=== PATIENT | male | born 1950 | race Caucasian/White ===

== ENCOUNTER 2022-10-07 09:24 | Outpatient (CLI) | payer MEDICARE ==
[2022-10-07 10:42] LABS: BILIRUBIN,URINE NEGATIVE (NEGATIVE); COLOR,URINE YELLOW (YELLOW); LEUKOCYTE ESTERASE ,URINE NEGATIVE (NEGATIVE); NITRITE, URINE NEGATIVE (NEGATIVE); PROTEIN,URINE NEGATIVE (NEGATIVE); UGLUCOSE 3+ mg/dL (NEGATIVE); UROBILINOGEN,URINE 0.2 EU/dL (0.2)
[2022-10-07 10:50] LABS: BASOPHILS % (AUTO) 0.3 % (0.0-2.0); EOSINOPHILS % (AUTO) 0.7 % (0.0-6.0); HEMATOCRIT 42 % (39-51); HEMOGLOBIN 14.1 g/dL (13.5-17.5); LYMPHOCYTES # (AUTO) 1.1 K/uL (0.8-4.8); MEAN CORPUSCULAR HGB CONC 34 g/dl (31.0-36.0); MEAN CORPUSCULAR VOLUME 89 fL (80-96); MONOCYTES # (AUTO) 0.6 K/uL (0.1-1.30); MONOCYTES % (AUTO) 8.1 % (2.0-12.0); NEUTROPHILS # (AUTO) 5.7 K/uL (1.8-8.9); NEUTROPHILS % (AUTO) 75.9 % (43.0-81.0); PLATELET COUNT (AUTO) 313 K/uL (150-450); WHITE BLOOD COUNT (AUTO) 7.5 K/uL (4.3-11.0)
[2022-10-07 10:52] LABS: CARBON DIOXIDE 27 mmol/L (21-32); CHLORIDE 106 mmol/L (98-107); CREATININE 1.1 mg/dL (0.6-1.3); GLUCOSE 123 mg/dL (74-106); POTASSIUM 3.6 mmol/L (3.5-5.1); SODIUM SERUM 143 mmol/L (136-145); UREA NITROGEN, BLOOD 24 mg/dL (7-18)
[2022-10-07 11:38] LABS: BACTERIA,URINE None seen /HPF (None Seen); SQUAMOUS EPITHELIAL CELL,UR Few /HPF (None Seen); WBC,URINE 0-2 /HPF (0-3)
== END 2022-10-07 23:59 | disposition home or self-care (01) ==
LOC: LAB 09:24
PROVIDERS: ATTEND Internal Medicine Pulmonary Disease
DX: Z01.818 Encounter for other preprocedural examination (principal)
CPT/HCPCS: 36415; 71045-TC; 80048-TC; 81001; 85025-TC; 85610-TC; 85730-TC

== ENCOUNTER 2022-10-13 12:48 | Outpatient (CLI) | payer MEDICARE | END 2022-10-13 23:59 | disposition home or self-care (01) | LOC: LAB 12:48 | PROVIDERS: ATTEND Dentist Oral and Maxillofacial Surgery | DX: Z01.812 Encounter for preprocedural laboratory examination (principal); Z20.822 Contact with and (suspected) exposure to COVID-19 | CPT/HCPCS: U0003; C9803 ==

== ENCOUNTER 2022-10-17 06:03 | Inpatient (IN) | payer MEDICARE ==
[~2022-10-17] VITALS: Ht 162.6 cm; Wt 74.4 kg
--- NOTE | 2022-10-17 06:20 | NUR ---
director environmental notes Pt is alert and orientedX4. Pt's son at the bedside Mundo Polanco ([phone]). On room air. No SOB. No S/s of distress noted. Vs is stable. Pt is scheduled for day SX Resect bone cysts, benign neoplasm and bilat osteomyelitis, mandible and maxilla with DR. Hu. Consent is signed by Pt. Pt's NPO since last night. Pt refuses to have IV insertion. Pt informed only wanted inserted on OR. Pt's belonging given to Pt's son. Safety precautions is maintained. Will endorse to am nurse.
[2022-10-17 06:30] VITALS: BP 136/72
[2022-10-17] MEDS ORDERED: GABAPENTIN 300 MG CAPSULE PO ONE (06:30)
--- NOTE | 2022-10-17 06:40 | NUR ---
RN notes Received a phone call from anesthesiology Irma Albarran. Anesthesiology instructed to give tylenol and gabapentin before SX. Meds were given as ordered. charge nurse is aware and informed.
[2022-10-17] MEDS ORDERED: FENTANYL PF 100MCG/2ML AMPUL ONE ×2 (06:49→11:36)
[2022-10-17] MEDS ORDERED: LIDOCAINE 2%-EPI 1:100,000 30 ML VIAL ONE (06:51)
[2022-10-17] MEDS ORDERED: DEXAMETHASONE SOD PHOSPHATE 10 MG/ML VIAL ONE (06:51)
[2022-10-17] MEDS ORDERED: ANESTHESIA TRAY IN PYXIS 1 EA TRAY MC ONE (06:52)
[2022-10-17] MEDS ORDERED: VANCOMYCIN 1 GM VIAL ONE (06:52)
[2022-10-17] MEDS ORDERED: ACETAMINOPHEN ES 500 MG TABLET PO ONE (07:00)
--- NOTE | 2022-10-17 07:04 | NUR ---
RN notes OR tech at the bedside. Pt is going to OR. Meds tylenol and gabapentin were given per anesthesiology Irma Albarran. VS is stable. NPO. Pt's son at the bedside.
--- NOTE | 2022-10-17 07:10 | NUR ---
RN notes Will endorse to am nurse for [facility].
[2022-10-17] MEDS ORDERED: ROCURONIUM BROMIDE 50 MG/5 ML ONE (07:14)
[2022-10-17] MEDS ORDERED: OXYMETAZOLINE HCL NASAL SPRAY 30 ML BOTTLE NS ONE ×2 (07:14→07:25)
[2022-10-17] MEDS ORDERED: FAMOTIDINE/PF INJ 20 MG/2 ML VIAL IV ONE (07:14)
[2022-10-17] MEDS ORDERED: SEVOFLURANE 250 ML BOTTLE IH ONE (07:40)
[2022-10-17 12:00] VITALS: BP 124/65
[2022-10-17] MEDS ORDERED: IV NS 0.9% 1,000 ML IV PRN (12:00)
[2022-10-17] MEDS: ACETAMINOPHEN 325 MG TABLET PO PRN ×2 (12:26→20:11)
[2022-10-17] MEDS ORDERED: OMEP40CA21 PO (13:11)
[2022-10-17] MEDS ORDERED: OLME20TA13 PO (13:11)
[2022-10-17] MEDS ORDERED: DAPA10TA PO (13:11)
[2022-10-17] MEDS ORDERED: ATOR10TA PO (13:11)
[2022-10-17] MEDS ORDERED: ASPI-1169 PO (13:11)
[2022-10-17] MEDS ORDERED: SITA1TAB2 PO (13:11)
[2022-10-17] MEDS ORDERED: AMLO2.5T4 PO (13:11)
[2022-10-17] MEDS ORDERED: DEXTROSE 50%-WATER 50 ML DISP.SYRIN IV PRN (13:30)
[2022-10-17 16:00] VITALS: BP 121/67
[2022-10-17] MEDS ORDERED: METFORMIN 500 MG TABLET PO SCH (17:00)
--- NOTE | 2022-10-17 17:30 | NUR ---
NOTE- BACK FROM SURGERY PATIENT ARRIVED VIA GURNEY ACCOMPANIED BY 2 OR NURSES AND SON. REPORT GIVEN BY MATTHEW RAMIREZ. PATIENT IS STABLE ON ROOM AIR, NO S/S OF SOB. A/Ox4, SRI LANKAN SPEAKING, UNDERSTANDS ON SITE PROPERTY MANAGER CHINESE. ABLE TO ANSWER QUESTION AND MAKE NEEDS KNOW. PAIN LEVEL 5, POST OP, MANDIBLE SURGERY. ICE PLACED AROUND THE MOUTH FOR PAIN MANAGEMENT, NO S/S OF ACTIVE BLEEDING. VITAL SIGNS T 98.2, HR 86, R 12, O2 96%, BP 125/72. IV ACCESS ON LFA INTACT AND PATENT. BLE CAPILLARIES REFILL <3. PRESENT BOWEL SOUNDS. LUNG CLEAR BILATERALLY UPON AUSCULTATION. SKIN ASSESSMENT DONE, SKIN INTACT. PATIENT WAS ORIENTED TO ROOM. FALL AND SAFETY PRECAUTION IN PLACE, BED LOCKED AND AT THE LOWEST POSITION, SRx2 CALL LIGHT WITHIN REACH. Addendum: 10/17/22 at 1858 by NEGRITA FORREST LVN PATIENT ARRIVED AT 1210 TO UNIT. TIME CORRECTION
[2022-10-17] MEDS: BLOOD SUGAR DIAGNOSTIC 1 EACH STRIP IN SCH ×2 (17:55→22:10)
[2022-10-17] MEDS ORDERED: ATORVASTATIN 10 MG TABLET PO SCH (18:00)
--- NOTE | 2022-10-17 19:29 | NUR ---
CLOSING NOTE PATIENT AWAKE RESTING IN BED, A/Ox4.ABLE TO MAKE ALL NEEDS KNOWN. ON ROOM AIR. NO S/S OF SOB OR LABORED BREATHING. NO S/S OF EDEMA. ICE BAG WAS PROVIDED FOR PAIN MANAGEMENT, POST OP. PAIN LEVEL 2. TOLERATING CLEAR LIQUIDS NO S/S OF DIFFICULTY SWALLOWING. NO S/S OF ACTIVE BLEEDING. MEDICATION WERE ADMINISTERED SCHEDULED. FALL AND SAFETY MEASURES MAINTAINED: BED LOCKED AND AT THE LOWEST POSITION, SRX2, CALL LIGHT WITHIN REACH. ENDORSED TO PAPER BOX MAKER NURSE.
--- NOTE | 2022-10-17 19:37 | NUR ---
noc rn opening received patient just ambulated to the restroom with his cane. a/ox4. no s/s of apparent distress on room air. denies any pain nor discomfort at this time. reading sr on the tele monitor with 88bpm. encouraged with the use of call light. patient is s/p resection of mandible. will monitor for any bleeding and air obstruction.
[2022-10-17 20:00] VITALS: BP 137/67
[2022-10-17] MEDS: INSULIN REGULAR, HUMAN 100 UNIT/ML 3 ML VIAL SQ PRN (22:10)
--- NOTE | 2022-10-17 22:11 | NUR ---
noc rn note- non-admin patient S/P resection of mandible and has not had any solid food. refused Insulin coverage since per patient he only has been drinking water.
[2022-10-18] VITALS: BP 142/74
[2022-10-18 04:00] VITALS: BP 139/75
[2022-10-18 05:55] LABS: BASOPHILS % (AUTO) 0.1 % (0.0-2.0); HEMATOCRIT 36 % (39-51); HEMOGLOBIN 12.2 g/dL (13.5-17.5); LYMPHOCYTES # (AUTO) 1.2 K/uL (0.8-4.8); LYMPHOCYTES % (AUTO) 11.7 % (20.0-44.0); MEAN CORPUSCULAR HGB CONC 34 g/dl (31.0-36.0); MEAN CORPUSCULAR VOLUME 89 fL (80-96); MONOCYTES % (AUTO) 10.4 % (2.0-12.0); NEUTROPHILS # (AUTO) 7.6 K/uL (1.8-8.9); NEUTROPHILS % (AUTO) 77.8 % (43.0-81.0); PLATELET COUNT (AUTO) 281 K/uL (150-450); RED BLOOD CELL COUNT(AUTO) 4.08 MIL/uL (4.5-6.0); WHITE BLOOD COUNT (AUTO) 9.8 K/uL (4.3-11.0)
[2022-10-18] MEDS: BLOOD SUGAR DIAGNOSTIC 1 EACH STRIP IN SCH ×2 (05:59→12:31)
[2022-10-18] MEDS: INSULIN REGULAR, HUMAN 100 UNIT/ML 3 ML VIAL SQ PRN (06:00)
--- NOTE | 2022-10-18 06:00 | NUR ---
noc rn note patient's blood sugar 107 this am. No coverage needed.
[2022-10-18 06:18] LABS: ALBUMIN 2.6 g/dL (3.4-5.0); BILIRUBIN,TOTAL 0.4 mg/dL (0.2-1.0); CALCIUM, SERUM 8.7 mg/dL (8.5-10.1); CREATININE 0.8 mg/dL (0.6-1.3); MAGNESIUM 2.1 mg/dL (1.8-2.4); PHOSPHORUS 2.8 mg/dL (2.5-4.9); POTASSIUM 3.8 mmol/L (3.5-5.1); TOTAL PROTEIN, SERUM 6.3 g/dL (6.4-8.2)
--- NOTE | 2022-10-18 06:59 | NUR ---
noc rn closing Patient in bed with eyes closed. no s/s of apparent distress on room air. denies pain at this time. no bleeding noted. Minimal swelling. reading sr throughout shift. IV NS running @30mls/hr. All needs attended. all scheduled medications administered. will endorse to morning shift rn for continuity of patient care.
[2022-10-18] MEDS ORDERED: PANTOPRAZOLE 40 MG TABLET.DR PO SCH (07:30)
--- NOTE | 2022-10-18 07:49 | NUR ---
INFORMATION TECHNOLOGY AUDITOR Opening Note Patient in bed. No s/s of distress/bleeding noted. On room air. Denies pain at this time. Minimal swelling. Tele monitoring. Left FA #22 IV NS running @30mls/hr. Safety in place, low bed, locked. Will continue to morning patient .
[2022-10-18 08:00] VITALS: BP 138/62
[2022-10-18 08:22] VITALS: BP 138/62
[2022-10-18 08:25] LABS: THYROID STIMULATING HORMONE 0.323 uIU/mL (0.358-3.74)
[2022-10-18] MEDS ORDERED: LOSARTAN POTASSIUM 50 MG TABLET PO SCH (09:00)
[2022-10-18] MEDS ORDERED: ASPIRIN 81 MG TAB.CHEW PO SCH (09:00)
[2022-10-18] MEDS ORDERED: LINAGLIPTIN 5 MG TABLET PO SCH (09:00)
[2022-10-18] MEDS ORDERED: AMLODIPINE BESYLATE 2.5 MG TABLET PO SCH (09:00)
--- NOTE | 2022-10-18 12:30 | NUR ---
SILICA FILTER OPERATOR Note Patient refused inlulin.
--- NOTE | 2022-10-18 14:22 | NUR ---
DISCHARGE NOTE Received order for discharge. Patient is A/O x 4, able to make needs known. Stable on room air, no SOB or s/s of distress noted. Discharge instructions given to patient and patient's son, both verbalized understanding. All belongings accounted for, belonging sheet signed. Patient denies any pain or discomfort at this time. S/P mandible and maxilla surgery, to follow up with Dr. Hu in one week. Exitcare folder given to son. Patient left in stable condition with son via private car.
== END 2022-10-18 14:44 | disposition home or self-care (01) | DRG 141 ==
LOC: DS 06:03 → MED 06:07 → TELE 13:32
PROVIDERS: ADMIT Dentist Oral and Maxillofacial Surgery
PROC: 09BR0ZZ Excision of Left Maxillary Sinus, Open Approach (ICD-10-PCS; principal; 2022-10-17)
PROC: 0NUR07Z Supplement Maxilla with Autologous Tissue Substitute, Open Approach (ICD-10-PCS; 2022-10-17)
PROC: 09BQ0ZZ Excision of Right Maxillary Sinus, Open Approach (ICD-10-PCS; 2022-10-17)
PROC: 09U Ear, Nose, Sinus, Supplement (ICD-10-PCS; 2022-10-17)
PROC: 09U Ear, Nose, Sinus, Supplement (ICD-10-PCS; 2022-10-17)
PROC: 0NBR0ZX Excision of Maxilla, Open Approach, Diagnostic (ICD-10-PCS; 2022-10-17)
PROC: 0NSR04Z Reposition Maxilla with Internal Fixation Device, Open Approach (ICD-10-PCS; 2022-10-17)
DX: M27.2 Inflammatory conditions of jaws (principal); M84.68XA Pathological fracture in other disease, other site, initial encounter for fracture; J32.0 Chronic maxillary sinusitis; E78.5 Hyperlipidemia, unspecified; E11.9 Type 2 diabetes mellitus without complications; M85.68 Other cyst of bone, other site; I10 Essential (primary) hypertension; M79.604 Pain in right leg; G89.29 Other chronic pain; M54.50 Low back pain, unspecified; Z88.8 Allergy status to other drugs, medicaments and biological substances; Z91.018 Allergy to other foods; T18.0XXA Foreign body in mouth, initial encounter; D16.4 Benign neoplasm of bones of skull and face; D16.5 Benign neoplasm of lower jaw bone; Z79.84 Long term (current) use of oral hypoglycemic drugs; Z79.82 Long term (current) use of aspirin; Z79.899 Other long term (current) drug therapy
CPT/HCPCS: 36415; 80053-TC; 80061-TC; 82962-TC; 83735-TC; 84100-TC; 84439-TC; 84443-TC; 85025-TC; 87081-TC; 88305-TC; 88311-TC; A4223; A6402; C1713; G0378; J1100; J1815; J2405; J2704; J3010; J3370; J3490; J7030; Q4186

== ENCOUNTER 2024-04-15 06:27 | Inpatient (IN) | payer MEDICARE ==
[~2024-04-15] VITALS: Ht 172.7 cm; Wt 78.9 kg
[~2024-04-15 06:27] MED LIST: ASPI-1420 PO; ATOR10TA PO; DAPA10TA PO; OLME20TA13 PO; OMEP40CA21 PO; SITA1TAB2 PO
[2024-04-15] MEDS ORDERED: ANESTHESIA TRAY IN PYXIS 1 EA TRAY MC ONE (06:58)
[2024-04-15] MEDS ORDERED: LIDOCAINE 2%-EPI 1:100,000 30 ML VIAL ONE (06:58)
[2024-04-15] MEDS ORDERED: dexaMETHasone SOD PHOSPHATE 1 ML ONE (06:59)
[2024-04-15] MEDS ORDERED: VANCOMYCIN 1 GM VIAL ONE (06:59)
[2024-04-15] MEDS ORDERED: FENTANYL PF 250MCG/5ML AMPUL ONE (07:16)
[2024-04-15] MEDS ORDERED: ROCURONIUM BROMIDE 50 MG/5 ML ONE (07:17)
[2024-04-15] MEDS ORDERED: HYDROMORPHONE 1 MG/1 ML DISP.SYRIN IV PRN (10:00)
[2024-04-15] MEDS ORDERED: ONDANSETRON HCL/PF 4 MG/2 ML VIAL IV PRN (10:00)
[2024-04-15] MEDS: IV NS 0.9% 1,000 ML IV PRN (10:47)
[2024-04-15] MEDS ORDERED: AMLO2.5T4 PO (11:16)
[2024-04-15 12:00] VITALS: BP 134/63; TEMP 97.7; O2SAT 98
[2024-04-15] MEDS: ACETAMINOPHEN 325 MG TABLET PO PRN (13:37)
[2024-04-15 16:00] VITALS: BP 125/79; TEMP 98.6; O2SAT 94
[2024-04-15 20:49] VITALS: BP 122/61; TEMP 98.4; O2SAT 97
[2024-04-15] MEDS: VANCOMYCIN 1 GM in IV D5W 250ml IV SCH (21:27)
[2024-04-16 08:00] VITALS: BP 118/66; TEMP 99; O2SAT 94
== END 2024-04-16 14:34 | disposition home or self-care (01) | DRG 908 ==
LOC: DS 06:27 → MED 10:24
PROVIDERS: ADMIT Internal Medicine; ATTEND Internal Medicine
PROC: 09BR0ZZ Excision of Left Maxillary Sinus, Open Approach (ICD-10-PCS; principal; 2024-04-15)
PROC: 0N5R0ZZ Destruction of Maxilla, Open Approach (ICD-10-PCS; 2024-04-15)
PROC: 0NSR04Z Reposition Maxilla with Internal Fixation Device, Open Approach (ICD-10-PCS; 2024-04-15)
PROC: 0NUR07Z Supplement Maxilla with Autologous Tissue Substitute, Open Approach (ICD-10-PCS; 2024-04-15)
PROC: 0NUR0KZ Supplement Maxilla with Nonautologous Tissue Substitute, Open Approach (ICD-10-PCS; 2024-04-15)
DX: T86.831 Bone graft failure (principal); S02.41 LeFort fracture; J32.0 Chronic maxillary sinusitis; X58.XXXA Exposure to other specified factors, initial encounter; Y92.9 Unspecified place or not applicable; E11.9 Type 2 diabetes mellitus without complications; E78.5 Hyperlipidemia, unspecified; I10 Essential (primary) hypertension; Z79.84 Long term (current) use of oral hypoglycemic drugs; Z79.82 Long term (current) use of aspirin; Z79.899 Other long term (current) drug therapy; G89.29 Other chronic pain; Y83.2 Surgical operation with anastomosis, bypass or graft as the cause of abnormal reaction of the patient, or of later complication, without mention of misadventure at the time of the procedure
CPT/HCPCS: 82962-TC; 88305-TC; 88311-TC; 88312-TC; A4223; A4338; C1713; G0378; J0360; J0690; J1100; J2704; J3010; J3370; J3490; J7030; J7060

== ENCOUNTER 2024-10-28 06:03 | Inpatient (IN) | payer MEDICARE ==
[~2024-10-28] VITALS: Ht 170.2 cm; Wt 75.7 kg
[~2024-10-28 06:03] MED LIST changes: +AMLO2.5T4 PO
[2024-10-28] MEDS ORDERED: VANCOMYCIN 1 GM VIAL ONE (07:01)
[2024-10-28] MEDS ORDERED: ANESTHESIA TRAY IN PYXIS 1 EA TRAY MC ONE (07:01)
[2024-10-28] MEDS ORDERED: LIDOCAINE 2%-EPI 1:100,000 30 ML VIAL ONE (07:01)
[2024-10-28] MEDS ORDERED: dexaMETHasone SOD PHOSPHATE 2 ML ONE (07:01)
[2024-10-28] MEDS ORDERED: OXYMETAZOLINE HCL NASAL SPRAY 30 ML BOTTLE NS ONE (07:24)
[2024-10-28] MEDS ORDERED: LIDOCAINE 2% JEL UROJET 10 ML MM ONE (07:27)
[2024-10-28] MEDS ORDERED: FENTANYL PF 100MCG/2ML AMPUL ONE (07:28)
[2024-10-28] MEDS ORDERED: FAMOTIDINE/PF INJ 20 MG/2 ML VIAL IV ONE (07:28)
[2024-10-28] MEDS ORDERED: ROCURONIUM BROMIDE 50 MG/5 ML ONE (07:28)
[2024-10-28] MEDS ORDERED: MIDAZOLAM HCL 2 MG/2ML VIAL ONE (07:28)
[2024-10-28] MEDS ORDERED: SUGAMMADEX SODIUM 200 MG/2 ML VIAL IV ONE (08:13)
[2024-10-28 09:10] VITALS: BP 138/72; TEMP 97.5; O2SAT 98
[2024-10-28] MEDS ORDERED: MAGNESIUM HYDROXIDE 30 ML UDC PO PRN (10:00)
[2024-10-28] MEDS ORDERED: ONDANSETRON HCL/PF 4 MG/2 ML VIAL IVP PRN (10:00)
[2024-10-28] MEDS ORDERED: LOSARTAN POTASSIUM 50 MG TABLET PO PRN (10:00)
[2024-10-28] MEDS ORDERED: PANTOPRAZOLE 40 MG TABLET.DR PO PRN (10:00)
[2024-10-28] MEDS ORDERED: MAG HYDROX/AL HYDROX/SIMETH 30 ML UDC PO PRN (10:00)
[2024-10-28] MEDS ORDERED: ACETAMINOPHEN 325 MG TABLET PO PRN (10:00)
[2024-10-28] MEDS ORDERED: Z GUARD REMEDY 4 OZ OINT TP PRN (10:00)
[2024-10-28] MEDS ORDERED: HYDROCODONE/APAP 10/325MG TABLET PO PRN (10:00)
[2024-10-28] MEDS ORDERED: AMLODIPINE BESYLATE 2.5 MG TABLET PO PRN (10:00)
[2024-10-28 16:56] LABS: CALCIUM, SERUM 9.3 mg/dL (8.5-10.1); CREATININE 1.1 mg/dL (0.6-1.3); POTASSIUM 4.9 mmol/L (3.5-5.1)
[2024-10-28] MEDS: METFORMIN 500 MG TABLET PO SCH (17:57)
[2024-10-28 20:00] VITALS: BP 133/56; TEMP 98.4; O2SAT 95
[2024-10-28] MEDS: ATORVASTATIN 10 MG TABLET PO SCH (22:26)
[2024-10-29 05:44] LABS: BASOPHILS % (AUTO) 0.1 % (0.0-2.0); HEMATOCRIT 38 % (39-51); HEMOGLOBIN 12.9 g/dL (13.5-17.5); LYMPHOCYTES # (AUTO) 0.8 K/uL (0.8-4.8); LYMPHOCYTES % (AUTO) 6.6 % (20.0-44.0); MEAN CORPUSCULAR HEMOGLOBIN 30 PG (26.0-33.0); MEAN CORPUSCULAR HGB CONC 34 g/dl (31.0-36.0); MEAN CORPUSCULAR VOLUME 89 fL (80-96); MONOCYTES # (AUTO) 0.8 K/uL (0.1-1.30); MONOCYTES % (AUTO) 6.8 % (2.0-12.0); NEUTROPHILS # (AUTO) 10.1 K/uL (1.8-8.9); NEUTROPHILS % (AUTO) 86.5 % (43.0-81.0); PLATELET COUNT (AUTO) 180 K/uL (150-450); RED BLOOD CELL COUNT(AUTO) 4.27 MIL/uL (4.5-6.0); RED CELL DISTRIBUTION WIDTH 13.7 % (11.5-15.0); WHITE BLOOD COUNT (AUTO) 11.7 K/uL (4.3-11.0)
[2024-10-29 05:59] LABS: CALCIUM, SERUM 8.5 mg/dL (8.5-10.1); MAGNESIUM 1.9 mg/dL (1.8-2.4); PHOSPHORUS 3.4 mg/dL (2.5-4.9); POTASSIUM 4.2 mmol/L (3.5-5.1)
[2024-10-29 08:00] VITALS: BP_SYST 109; BP_SYST 148; BP_DIAS 58; BP_DIAS 66; TEMP 98.1; TEMP 98.6; O2SAT 95
[2024-10-29] MEDS: DAPAGLIFLOZIN PROPANEDIOL 10 MG TABLET PO SCH (08:15)
[2024-10-29] MEDS: VANCOMYCIN 1 GM in IV D5W 250ml IV SCH (08:16)
[2024-10-29] MEDS: LINAGLIPTIN 5 MG TABLET PO SCH (08:16)
[2024-10-29] MEDS: ASPIRIN EC 81 MG TABLET.DR PO SCH (08:16)
[2024-10-29] MEDS ORDERED: IV NS 0.9% 1,000 ML IV PRN (08:30)
[2024-10-29] MEDS ORDERED: HYDROMORPHONE 1 MG/1 ML DISP.SYRIN IV PRN (08:30)
== END 2024-10-29 13:15 | disposition home or self-care (01) | DRG 517 ==
LOC: DS 06:03 → MED 09:23
PROVIDERS: ADMIT Nurse Practitioner Acute Care; ATTEND Nurse Practitioner Acute Care
PROC: 0NSR04Z Reposition Maxilla with Internal Fixation Device, Open Approach (ICD-10-PCS; principal; 2024-10-28 07:30)
DX: T84.69XA Infection and inflammatory reaction due to internal fixation device of other site, initial encounter (principal); J01.01 Acute recurrent maxillary sinusitis; J32.0 Chronic maxillary sinusitis; E78.5 Hyperlipidemia, unspecified; I10 Essential (primary) hypertension; G89.29 Other chronic pain; Z79.84 Long term (current) use of oral hypoglycemic drugs; Z79.82 Long term (current) use of aspirin; Z79.899 Other long term (current) drug therapy; E11.69 Type 2 diabetes mellitus with other specified complication; M27.2 Inflammatory conditions of jaws; Y83.8 Other surgical procedures as the cause of abnormal reaction of the patient, or of later complication, without mention of misadventure at the time of the procedure; Y92.009 Unspecified place in unspecified non-institutional (private) residence as the place of occurrence of the external cause; D16.4 Benign neoplasm of bones of skull and face; Z88.8 Allergy status to other drugs, medicaments and biological substances
CPT/HCPCS: 36415; 71045-TC; 80048-TC; 82962-TC; 83735-TC; 84100-TC; 85025-TC; 88305-TC; 88311-TC; A4338; G0378; J1100; J1308; J2250; J2405; J2704; J3010; J3370; J3490; J7030; J7060

== ENCOUNTER 2025-03-31 07:29 | Inpatient (IN) | payer MEDICARE ==
[~2025-03-31] VITALS: Ht 170.2 cm; Wt 76.2 kg
[2025-03-31] MEDS ORDERED: dexaMETHasone SOD PHOSPHATE 1 ML ONE (09:54)
[2025-03-31] MEDS ORDERED: LIDOCAINE 2%-EPI 1:100,000 30 ML VIAL ONE (09:54)
[2025-03-31] MEDS ORDERED: VANCOMYCIN 1 GM VIAL ONE (09:55)
[2025-03-31] MEDS ORDERED: OXYMETAZOLINE HCL NASAL SPRAY 30 ML BOTTLE NS ONE (09:55)
[2025-03-31] MEDS ORDERED: HYDROMORPHONE 1 MG/1 ML DISP.SYRIN IV PRN (13:30)
[2025-03-31] MEDS ORDERED: ACETAMINOPHEN 325 MG TABLET PO PRN ×2 (13:30→18:30)
[2025-03-31] MEDS ORDERED: ONDANSETRON HCL/PF 4 MG/2 ML VIAL IV PRN (13:30)
[2025-03-31] MEDS: IV NS 0.9% 1,000 ML IV PRN (14:44)
[2025-03-31 16:00] VITALS: BP 116/80; TEMP 98.1; O2SAT 93
[2025-03-31 16:13] VITALS: BP 140/70; TEMP 98.1; O2SAT 96
[2025-03-31] MEDS ORDERED: LOSARTAN POTASSIUM 50 MG TABLET PO PRN (18:30)
[2025-03-31] MEDS ORDERED: DEXTROSE 50%-WATER 50 ML DISP.SYRIN IV PRN (18:30)
[2025-03-31] MEDS ORDERED: PANTOPRAZOLE 40 MG TABLET.DR PO PRN (18:30)
[2025-03-31] MEDS ORDERED: MAG HYDROX/AL HYDROX/SIMETH 30 ML UDC PO PRN (18:30)
[2025-03-31] MEDS ORDERED: MAGNESIUM HYDROXIDE 30 ML UDC PO PRN (18:30)
[2025-03-31] MEDS ORDERED: Z GUARD REMEDY 4 OZ OINT TP PRN (18:30)
[2025-03-31] MEDS ORDERED: ONDANSETRON HCL/PF 4 MG/2 ML VIAL IVP PRN (18:30)
[2025-03-31] MEDS ORDERED: AMLODIPINE BESYLATE 2.5 MG TABLET PO PRN (18:30)
[2025-03-31 20:00] VITALS: BP 132/67; TEMP 98.8; O2SAT 94
[2025-03-31] MEDS: BLOOD SUGAR DIAGNOSTIC 1 EACH STRIP VI SCH (21:11)
[2025-03-31] MEDS: *INSULIN REGULAR(HUMULIN R)HUM 100 UNIT/ML VIAL SQ PRN (21:18)
[2025-03-31] MEDS: VANCOMYCIN 1 GM in IV D5W 250ml IV SCH (21:24)
[2025-04-01 06:33] LABS: PLATELET COUNT (AUTO) 198 K/uL (150-450); RED BLOOD CELL COUNT(AUTO) 4.65 MIL/uL (4.5-6.0); RED CELL DISTRIBUTION WIDTH 14.0 % (11.5-15.0); WHITE BLOOD COUNT (AUTO) 10.5 K/uL (4.3-11.0)
[2025-04-01 06:47] LABS: CALCIUM, SERUM 8.7 mg/dL (8.5-10.1); CREATININE 0.9 mg/dL (0.6-1.3); PHOSPHORUS 3.5 mg/dL (2.5-4.9); SODIUM SERUM 143.0 mmol/L (136-145); UREA NITROGEN, BLOOD 18.0 mg/dL (7-18)
[2025-04-01 08:00] VITALS: BP 120/61; TEMP 98.1; O2SAT 98
[2025-04-01] MEDS: INSULIN REGULAR, HUMAN 100 UNIT/ML 3 ML VIAL SQ PRN (11:33)
[2025-04-01] MEDS ORDERED: BUPIVACAINE MPF W/EPI 0.25% 30 ML VIAL IJ ONE (12:57)
== END 2025-04-01 12:00 | disposition home or self-care (01) | DRG 908 ==
LOC: DS 07:29 → MED 13:07
PROVIDERS: ADMIT Internal Medicine; ATTEND Internal Medicine
PROC: 0NSR04Z Reposition Maxilla with Internal Fixation Device, Open Approach (ICD-10-PCS; 2025-03-31)
PROC: 0N5R0ZZ Destruction of Maxilla, Open Approach (ICD-10-PCS; 2025-03-31)
PROC: 0N5V0ZZ Destruction of Left Mandible, Open Approach (ICD-10-PCS; 2025-03-31)
PROC: 09UR07Z Supplement Left Maxillary Sinus with Autologous Tissue Substitute, Open Approach (ICD-10-PCS; 2025-03-31)
PROC: 0WU Anatomical Regions, General, Supplement (ICD-10-PCS; 2025-03-31)
PROC: 0NPW04Z Removal of Internal Fixation Device from Facial Bone, Open Approach (ICD-10-PCS; 2025-03-31)
PROC: 0NUV07Z Supplement Left Mandible with Autologous Tissue Substitute, Open Approach (ICD-10-PCS; 2025-03-31)
PROC: 0NSV0ZZ Reposition Left Mandible, Open Approach (ICD-10-PCS; 2025-03-31)
PROC: 09BR0ZZ Excision of Left Maxillary Sinus, Open Approach (ICD-10-PCS; principal; 2025-03-31 10:00)
DX: T86.831 Bone graft failure (principal); S02.40DA Maxillary fracture, left side, initial encounter for closed fracture; S02.40DK Maxillary fracture, left side, subsequent encounter for fracture with nonunion; S02.609K Fracture of mandible, unspecified, subsequent encounter for fracture with nonunion; Y83.2 Surgical operation with anastomosis, bypass or graft as the cause of abnormal reaction of the patient, or of later complication, without mention of misadventure at the time of the procedure; Y92.89 Other specified places as the place of occurrence of the external cause; J32.0 Chronic maxillary sinusitis; I10 Essential (primary) hypertension; E78.5 Hyperlipidemia, unspecified; E11.69 Type 2 diabetes mellitus with other specified complication; M27.2 Inflammatory conditions of jaws; X58.XXXD Exposure to other specified factors, subsequent encounter; D16.5 Benign neoplasm of lower jaw bone
CPT/HCPCS: 36415; 80048-TC; 82962-TC; 83735-TC; 84100-TC; 85025-TC; A4217; A4223; A4338; C1713; G0378; J0360; J0690; J1100; J1815; J2704; J3373; J3490; J7030; J7060